=== PATIENT | female | born 1990 | race Caucasian/White ===

== ENCOUNTER 2017-09-28 00:17 | Emergency (ER) | payer OTHER ==
[~2017-09-28] VITALS: Ht 167.6 cm; Wt 70.1 kg
[~2017-09-28 00:17] MED LIST: BIRTH CONTROL PO; KETO10 PO
[2017-09-28 00:20] VITALS: BP 114/80; PULSE 68; RESP 16; TEMP 97.6; O2SAT 100
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
[2017-09-28] MEDS ORDERED: IBUP-232 PO (01:55)
[2017-09-28] MEDS ORDERED: MECL-62 PO (01:55)
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
[2017-09-28] MEDS ORDERED: MECLIZINE HCL 25 MG TAB PO ONE (02:00)
[2017-09-28 02:03] VITALS: BP 115/76
== END 2017-09-28 02:15 | disposition home or self-care (01) ==
LOC: PHED 00:17
DX: R42 Dizziness and giddiness (principal); M54.9 Dorsalgia, unspecified; M54.2 Cervicalgia; M79.1 Myalgia; V89.2XXA Person injured in unspecified motor-vehicle accident, traffic, initial encounter
CPT/HCPCS: 72125; 99284